=== PATIENT | female | born 1950 | race Caucasian/White ===

== ENCOUNTER 2018-03-19 04:38 | Emergency (ER) | payer OTHER ==
[~2018-03-19] VITALS: Ht 162.6 cm; Wt 76.7 kg
[2018-03-19] MEDS ORDERED: ENALAPRIL MALE2.5 MG (05:06)
[2018-03-19] MEDS ORDERED: METOPROLOL ER-1 EAC1 (05:08)
[2018-03-19] MEDS ORDERED: ATORVASTATIN CA10 MG (05:08)
[2018-03-19] MEDS ORDERED: PLAVIX75 MG (05:08)
[2018-03-19] MEDS ORDERED: PNEU16DI2 (05:09)
[2018-03-19] MEDS ORDERED: SIMVASTATIN5 MG (05:09)
== END 2018-03-19 15:50 | disposition home or self-care (01) ==
LOC: ER 04:38
DX: N39.0 Urinary tract infection, site not specified (principal); R10.32 Left lower quadrant pain

== ENCOUNTER 2018-04-07 21:03 | Emergency (ER) | payer OTHER ==
[~2018-04-07] VITALS: Ht 162.6 cm; Wt 76.2 kg
[~2018-04-07 21:03] MED LIST: ATORVASTATIN CA10 MG; ENALAPRIL MALE2.5 MG; METOPROLOL ER-1 EAC1; PLAVIX75 MG; PNEU16DI2; SIMVASTATIN5 MG
== END 2018-04-08 17:43 | disposition home or self-care (01) ==
LOC: ER 21:03 → CPU-OBS 21:42 → ER 21:42
DX: R07.89 Other chest pain (principal); I16.0 Hypertensive urgency; I10 Essential (primary) hypertension

== ENCOUNTER 2018-12-21 16:31 | Emergency (ER) | payer OTHER ==
[~2018-12-21] VITALS: Ht 172.7 cm; Wt 78.0 kg
== END 2018-12-21 22:08 | disposition home or self-care (01) ==
LOC: ER 16:31 → CPU-OBS 16:49 → ER 22:08
DX: R07.89 Other chest pain (principal)

== ENCOUNTER 2019-02-23 10:04 | Emergency (ER) | payer OTHER ==
[~2019-02-23] VITALS: Ht 162.6 cm; Wt 77.1 kg
== END 2019-02-23 15:05 | disposition home or self-care (01) ==
LOC: ER 10:04
DX: M75.82 Other shoulder lesions, left shoulder (principal)

== ENCOUNTER 2019-07-01 15:33 | Emergency (ER) | payer OTHER ==
[~2019-07-01] VITALS: Ht 157.5 cm; Wt 67.1 kg
== END 2019-07-01 18:36 | disposition home or self-care (01) ==
LOC: ER 15:33
DX: K58.8 Other irritable bowel syndrome (principal)

== ENCOUNTER → 2020-03-26 | Emergency (ER) | payer OTHER ==
[~2020-03-26] VITALS: Ht 162.6 cm; Wt 70.3 kg
[~2020-03-26] MED LIST changes: +ALDACTONE25 MG PO; +CARVEDILOL25 MG; +CARVEDILOL6.25 MG; +ISOSORBIDE DINI30 MG PO; +LANOXIN125 MCG PO; +LOSARTAN POTASS25 MG PO; +NITROGLYCERIN0.4 MG SL; +ZESTRIL5 MG PO
== END | disposition left against medical advice (07) ==
LOC: ER 14:36
DX: Z53.20 Procedure and treatment not carried out because of patient's decision for unspecified reasons (principal)

== ENCOUNTER 2020-04-08 08:32 | Emergency (ER) | payer OTHER ==
[~2020-04-08] VITALS: Ht 162.6 cm; Wt 70.3 kg
== END 2020-04-08 11:29 | disposition home or self-care (01) ==
LOC: ER 08:32
DX: M25.512 Pain in left shoulder (principal); M79.602 Pain in left arm; Z03.818 Encounter for observation for suspected exposure to other biological agents ruled out